=== PATIENT | female | born 1995 | race Caucasian/White ===

== ENCOUNTER 2024-05-03 16:40 | Emergency (ER) | payer OTHER, SELFPAY ==
[2024-05-03 16:47] VITALS: BP 140/79; PULSE 77; RESP 16; TEMP 36.9; O2SAT 99; BMI 20.9
[2024-05-03 17:24] LABS: Strep Grp A by PCR Rapid Negative (Negative)
[2024-05-03 17:48] LABS: Influenza A - CEPHEID Flu A NEGATIVE (NEGATIVE); Influenza B - CEPHEID Flu B NEGATIVE (NEGATIVE); Respiratory Syncytial Virus Negative (Negative)
[2024-05-03 17:50] LABS: COVID-19 CEPHEID 4-PLEX PCR Negative (Negative)
--- NOTE | 2024-05-03 18:19 | ED_ITS ---
HPI - URI/Sore Throat <Crystal Little PA-C - Last Filed: 05/03/24 21:20> General Chief Complaint: Upper Respiratory Symptoms Stated Complaint: cold symptoms Time Seen by Provider: 05/03/24 17:53 Mode of arrival: Ambulatory History of Present Illness HPI Narrative: Ms. Montgomery is a pleasant 28-year-old female with a past medical history of tonsillectomy 6 years ago who presents to the emergency department for sore throat x3 days and some indigestion. Patient states that she has not had a sore throat since she had her tonsils removed 6 years ago however about 3 days ago she noticed she started developing a sore throat, pain exacerbated by swallowing. She also reports that her stomach has been grumbling more and she is feeling quite gassy. She is noticing occasional acid reflux which she does not typically have. She does report a history of bilateral cerumen impactions that she has flushed by her primary care doctor but her ears are not causing her any discomfort at this time. Denies fevers, chills, vomiting, dysuria, a bdominal pain, diarrhea, cough, trouble breathing. She was concerned that she may have something contagious because her boyfriend is having similar symptoms. She tried liquid Tylenol at home with no resolution of symptoms. Related Data Previous Rx's Medication Instructions Recorded pantoprazole 20 mg tablet,delayed 20 mg PO DAILY 14 days #14 tabs 05/03/24 release (Protonix) Review of Systems <Crystal Little PA-C - Last Filed: 05/03/24 21:20> Review of Systems ROS Unobtainable: All systems reviewed & are unremarkable except as noted in HPI and below Patient History <Crystal Little PA-C - Last Filed: 05/03/24 21:20> Social History Smoking Status: Never smoker Smoking Status: Never smoker Exam <Crystal Little PA-C - Last Filed: 05/03/24 21:20> Narrative Exam Narrative: GENERAL: 28 year old patient appears stated age. Well-developed patient, in no acute distress. HEAD: Atraumatic. Normocephalic. EYES: PERRL. Extraocular motions intact. No scleral icterus. No injection or drainage. ENT: R ear canal with cerumen, Left canal clear with pearly dominguez TM. Nose without bleeding, purulent drainage. Throat with mild posterior oropharyngeal erythema, there are no lesions. She does not have tonsils. Uvula is midline. Oropharynx is widely patent. NECK: Trachea midline. Cervical ROM intact. No stridor. CARDIOVASCULAR: Regular rate and rhythm. RESPIRATORY: ?Nonlabored respirations. ?Speaking in clear, full sentences. ?Clear to auscultation. Breath sounds equal bilaterally. No wheezes, rales, or rhonchi. ? GASTROINTESTINAL: Abdomen soft, non-tender, nondistended. Normal bowel sounds. NEURO: AOx3. ?Clear speech. ?Moves all 4 extremities appropriately. SKIN: No rash or erythema of visible areas Initial Vital Signs Initial Vital Signs: Vital Signs Temperature 98.5 F 05/03/24 16:47 Pulse Rate 77 05/03/24 16:47 Respiratory Rate 16 05/03/24 16:47 Blood Pressure 140/79 05/03/24 16:47 Pulse Oximetry 99 05/03/24 16:47 Oxygen Delivery Method Room Air 05/03/24 16:47 <Sree Ramirez MD - Last Filed: 05/04/24 05:24> Initial Vital Signs Initial Vital Signs: Vital Signs Temperature 98.5 F 05/03/24 16:47 Pulse Rate 77 05/03/24 16:47 Respiratory Rate 16 05/03/24 16:47 Blood Pressure 140/79 05/03/24 16:47 Pulse Oximetry 99 05/03/24 16:47 Oxygen Delivery Method Room Air 05/03/24 16:47 Course <Crystal Little PA-C - Last Filed: 05/03/24 21:20> Orders Ordered: Discontinued Medications Ketorolac Tromethamine (Ketorolac 30 Mg/Ml Vial) 30 mg IM NOW ONE Stop: 05/03/24 19:09 Last Admin: 05/03/24 19:16 Dose: 30 mg Documented By: SONG Vital Signs Vital signs: Vital Signs - 8 hr 05/03/24 16:47 05/03/24 19:57 Temperature 98.5 F Pulse Rate 77 75 Respiratory Rate 16 16 Blood Pressure 140/79 135/76 Pulse Oximetry 99 99 Oxygen Delivery Method Room Air Room Air <Sree Ramirez MD - Last Filed: 05/04/24 05:24> Orders Ordered: Discontinued Medications Ketorolac Tromethamine (Ketorolac 30 Mg/Ml Vial) 30 mg IM NOW ONE Stop: 05/03/24 19:09 Last Admin: 05/03/24 19:16 Dose: 30 mg Documented By: SONG Vital Signs Vital signs: Vital Signs - 8 hr 05/03/24 16:47 05/03/24 19:57 Temperature 98.5 F Pulse Rate 77 75 Respiratory Rate 16 16 Blood Pressure 140/79 135/76 Pulse Oximetry 99 99 Oxygen Delivery Method Room Air Room Air MDM - URI/Sore Throat <Crystal Little PA-C - Last Filed: 05/03/24 21:20> Lab Data Labs: Lab Results 05/03/24 Range/Units 17:07 SARS-CoV-2 (PCR) Negative (Negative) Influenza A (RT-PCR) Flu a negative (NEGATIVE) Influenza B (RT-PCR) Flu b negative (NEGATIVE) RSV (PCR) Negative (Negative) Group A Strep (PCR) Negative (Negative) MDM Narrative Medical decision making narrative: 28-year-old female with a past medical history of tonsillectomy 6 years ago who presents to the emergency department for sore throat x3 days and some indigestion. Differential diagnosis includes but is not limited to viral pharyngitis, laryngitis, viral syndrome, strep pharyngitis, mononucleosis, GERD, H pylori, etc. On exam the patient is in no acute distress, nontoxic-appearing, all vital signs within normal limits. Abdomen is soft and nontender. Posterior oropharynx with minimal erythema, uvula is midline and oropharynx is widely patent. Patient has clear speech and no difficulty tolerating p.o. or secretions. Rapid strep test negative, for pack viral swab negative, throat culture sent to the lab. Had extensive discussion with the patient that symptoms could be due to viral illness, acid reflux or combination of both. We will try a course of Protonix,, dose of Toradol in the emergency department (patient has an IUD and declines the need for test prior to medication), recommended supportive care as well including ibuprofen/Tylenol, warm tea with honey, follow up with primary care doctor for further evaluation potential H pylori testing if reflux persists. Patient verbalized understanding of all information and is agreeable with the plan. She is well-appearing and stable for discharge home. ED return precautions discussed. <Sree Ramirez MD - Last Filed: 05/04/24 05:24> Lab Data Labs: Lab Results 05/03/24 Range/Units 17:07 SARS-CoV-2 (PCR) Negative (Negative) Influenza A (RT-PCR) Flu a negative (NEGATIVE) Influenza B (RT-PCR) Flu b negative (NEGATIVE) RSV (PCR) Negative (Negative) Group A Strep (PCR) Negative (Negative) Discharge Plan Departure Patient Disposition: Home Clinical Impression: Acid indigestion Pharyngitis Qualifiers: Pharyngitis/tonsillitis etiology: unspecified etiology Qualified Code(s): J02.9 - Acute pharyngitis, unspecified Instructions: DI for Pharyngitis/Tonsillopharyngitis -- Adult Activity Restrictions/Additional Instructions: Dear Ms. Montgomery, Today you were evaluated for sore throat and indigestion x3 days. Your COVID/flu/RSV test was negative and your rapid strep throat test was negative as well. Your symptoms may be the result of a viral upper respiratory infection and or acid reflux. I have prescribed you a medication to help with acid reflux that you should take every morning. For your sore throat it is very important to use ibuprofen/Tylenol for pain, drink warm tea with honey. Please take Ibuprofen (Motrin/Advil) or Acetaminophen (Tylenol) for pain. These are available over the counter. You may take Ibuprofen 600 mg every 8 hours with food for pain. You may also take Acetaminophen 650 mg every 4-6 hours for pain. Do not exceed 3000 mg of Tylenol a day as this can cause liver damage. Do not drink alcohol with either of these medications. Please return to the emergency department immediately if you develop any new or worsening symptoms, inability to keep down liquids, trouble breathing, abdominal pain, or any other concerns. Please follow up with your primary care doctor within the next 2-3 days for ER follow-up. (If you do not have a PCP you can call [phone]. ?to schedule an appointment with an [facility] Primary Care Provider) IF YOU DEVELOP ANY NEW OR WORSENING SYMPTOMS, RETURN TO THE ER! Please read the attached instructions, they highlight more specific treatments and interventions for you at home. Thank you for letting me participate in your care, Crystal Little PA-C Prescriptions: New pantoprazole [Protonix] 20 mg tablet,delayed release (DR/EC) 20 mg PO DAILY 14 Days Qty: 14 0RF Stand Alone Forms: Patient Portal/API/Survey ED Sign-out <Sree Ramirez MD - Last Filed: 05/04/24 05:24> Cosign ED Attending Cosignature Attestation: I was immediately available in the department for consultation. This documentation has been reviewed and I agree with assessment and plan. Supervised by Sree Ramirez MD
[2024-05-03] MEDS: KETOROLAC 30 MG/ML VIAL IM (19:16)
[2024-05-03 19:57] VITALS: BP 135/76; PULSE 75; RESP 16; O2SAT 99
== END 2024-05-03 19:58 | disposition home or self-care (01) ==
PROVIDERS: Emergency Medicine; Emergency Provider Physician Assistant
DX: J02.9 Acute pharyngitis, unspecified (principal); K30 Functional dyspepsia; Z98.890 Other specified postprocedural states
CPT/HCPCS: 0241U; 87070; 87651; 96372; 99283; 99284; J1885